=== PATIENT | female | born 1970 | race Caucasian/White ===

== ENCOUNTER 2021-05-15 08:55 | Outpatient (CLI) | payer BC, SELFPAY ==
--- NOTE | ~2021-05-15 | XR_ITS ---
EXAMINATION: XR chest 2V DATE: 05/15/2021 09:17 INDICATION: COVID 19 exposure TECHNIQUE: PA and lateral views of the chest are obtained. COMPARISON: 06/21/2013 FINDINGS: The lungs are free of acute opacities. There is no pleural effusion or pneumothorax. The ca rdiomediastinal silhouette is normal. There is mild thoracic spondylosis. IMPRESSION: 1. No acute cardiopulmonary abnormality. Reviewed, dictated and finalized at location B.
== END 2021-05-15 08:56 | disposition home or self-care (01) ==
PROVIDERS: PCP Family Medicine; Visit Provider Physician Assistant
DX: Z20.822 Contact with and (suspected) exposure to COVID-19 (principal)
CPT/HCPCS: 71046

== ENCOUNTER 2022-10-22 10:02 | Outpatient (RCR) | payer BC, SELFPAY ==
--- NOTE | 2022-10-22 10:53 | PTOPEVAL1 ---
Assessment and note entered by JT File, PT Evaluation Information Assessment Status Evaluation Diagnosis L ankle pain, ankle sprain Onset 10/13/22 Subjective Information patient reports she fell down her stairs a year ago and sprained her ankle. she reports it has gotten a bit better since the injury. however, she then missed a step on vacation and now her pain is flared back up. she reports it is swelling and very sore. she reports she has had xrays but no MRI. she reports she has had no injections. she reports she was prescribed some meds, but is no longer taking them. she reports she has not had any rehab for this injury. she reportsthe MD thinks she may have some nerve damage due to the pain presentation/symptoms. she reports she has increased pain when sleeping. she reports she also has increased pain with walking for a mile or standing for 20-30 minutes Reported Pain Level Pain Score 0: Self Report Assessment PT Clinical Summary mrs. balderas is a 52 yo woman who presents to skilled PT services for acute on chronic flare up of ankle instability and pain. she presents with signs and symptoms of an unhealed lateral L ankle sprain. she presents with deficits in rom, strength, flexibility, and stability. she would benefit from continued skilled PT to address her deficits and progress towards a return to her prior level functional activity performance/ quality of life. Plan of Care Interventions Electrical Stimulation,Gait Training,Hot Pack/Cold Pack,Intermittent Compression,Manual Therapy, Neuro Re-education,Patient/Caregiver Educati, Therapeutic Activities,Therapeutic Exercise PT Services Indicated Yes Treatment Frequency and 2x weekly for 12 visits Duration These treatments will address the objective and functional deficits as defined above. The patient will be advanced safely and appropriately in order for the patient to progress towards his/her prior level of function. Additional exercises will be introduced and as well as a comprehensive home exercise program upon discharge, if needed, ?to ensure carryover of functional gains achieved in the clinic. This treatment plan has been reviewed and agreement upon by the patient.
== END 2022-11-25 23:59 | disposition home or self-care (01) ==
LOC: CHSPT 10:02
PROVIDERS: Visit Provider Podiatrist Foot & Ankle Surgery
DX: S93.402D Sprain of unspecified ligament of left ankle, subsequent encounter (principal); M25.572 Pain in left ankle and joints of left foot
CPT/HCPCS: 97110; 97112; 97161; 97530

== ENCOUNTER 2022-10-29 09:03 | Outpatient (CLI) | payer BC, SELFPAY ==
[2022-10-29 09:51] LABS: Alanine Aminotransferase 29 U/L (14-59); Albumin Level 3.8 g/dL (3.4-5.0); Alkaline Phosphatase 57 U/L (46-116); Anion Gap 9 mmol/L (8-16); Aspartate Amino Transferase 17 U/L (15-37); Bilirubin,Total 0.6 mg/dL (0.00-1.00); Blood Urea Nitrogen 18 mg/dL (7-18); Calcium 9.4 mg/dL (8.5-10.1); Carbon Dioxide 30 mmol/L (21-32); Chloride 103 mmol/L (98-108); Cholesterol 192 mg/dL (0-200); Estimated Glomerular Filt Rate 51; Glucose 98 mg/dL (70-99); HDL Direct 58 mg/dL (40-60); LDL Cholesterol Calculated 115 mg/dL (<130); Osmolality Calculated 295 mOsm/kg (285-295); Potassium 4.1 mmol/L (3.5-5.1); Sodium 142 mmol/L (136-145); Total Protein 7.2 g/dL (6.4-8.2); Triglycerides 94 mg/dL (0-150)
== END 2022-10-29 09:04 | disposition home or self-care (01) ==
LOC: CHSLAB 09:05
PROVIDERS: PCP Family Medicine; Visit Provider Family Medicine
DX: E78.2 Mixed hyperlipidemia (principal)
CPT/HCPCS: 36415; 80053; 80061

== ENCOUNTER 2024-10-10 07:37 | Outpatient (CLI) | payer BC, SELFPAY ==
--- OUTSIDE RECORDS SUMMARY | 2024-10-10 07:44 | XMS_ITS | Clinical Summary ---
Author Organization [place] [address] [facility] Address [address] [place] [address] Care Team Providers Care Car Jockey Name Role Phone Joanne Corona MD Primary Care Provider Allergies Active Allergy Reactions Criticality Noted Date Comments Ezetimibe Nausea & Vomiting High 07/17/2022 Medications estradioL (ESTRACE) 1 mg tabletIndications:ho rmone replacement Take 1 tablet (1 mg total) by mouth every morning 02/23/20 21 Active lisinopril-hydroCHLO ROthiazide (ZESTORETIC) 10-12.5 mg per tabletIndications:hy pertension Take 1 tablet by mouth every morning Active fenofibrate nanocrystallized (TRICOR) 145 mg tabletIndications:hy perlipidemia Take 1 tablet (145 mg total) by mouth every morning 12/27/19 23 Active multivitamin tabletIndications:Vi tamin Deficiency Prevention Take 1 tablet by mouth every morning Active BLACK COHOSH ORALIndications:supp lement Take 1 tablet by mouth every morning Active HYDROcodone-acetamin ophen (NORCO) 5-325 mg per tabletIndications:Pa in Take 1 tablet by mouth every 6 (six) hours as needed for pain for up to 15 doses 15 tablet 06/27/20 24 Active acetaminophen (TYLENOL) 325 mg tablet Take 2 tablets (650 mg total) by mouth every 6 (six) hours 06/27/20 24 Active ofloxacin (FLOXIN) 0.3 % otic solution Administer 5 drops into the left ear daily 5 mL 1 06/29/20 24 Active ondansetron ODT (ZOFRAN-ODT) 4 mg disintegrating tablet Take 1 tablet (4 mg total) by mouth every 8 (eight) hours as needed for nausea or vomiting 20 tablet 06/27/20 24 Active Active Problems Problem Noted Date Diagnosed Date 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 in case of any symptoms of hyperthyroidism recur Assessment & Plan (07/17/2022 9:42 AM BRAND AMBASSADOR PROMOTIONAL MODEL): No clear s/s of hyperthyridism Will recheck TFTs Recommendations to follow. F/u in 6 months. Assessment & Plan (07/18/2021 9:14 AM BRAND AMBASSADOR PROMOTIONAL MODEL): Chronic problem, stable off medication. Will update labs today. If normal, repeat in 1 year but call sooner if any symptoms of hypo or hyperthyroidism which we reviewed. If labs only mildly abnormal, may choose to just monitor and recheck sooner in 3 months. Assessment & Plan (03/14/2021 4:46 PM CDT): I explained to the patient that the goal of hyperthyroidism is normalize TSH . At this moment her TSH is high, indicating that she needs adjustment on the Tapazole. I suspect the patient may have subclinical hyperthyroidism that does not need any specific treatment. I have requested TFTs , including TPO anti I have advised the patient on hold on the Tapazole for now Will recheck levels again in 2 months and will call with any advise. 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 [place] [address] Julius Harris MD Otosclerosis of both ears (Primary Dx) from Last 3 Months Immunizations Immunization Administration Dates Next Due Hep A, Adult 02/18/2019 Tdap 09/20/2017 Surgical History Surgery Date Site/Laterality Comments PARTIAL HYSTERECTOMY 05/13/2013 - 06/11/2013 KNEE ARTHROSCOPY Right early Medical History Medical History Date Comments Hyperthyroidism Hypertension Dxd ~2013 HL (hearing loss) 08/2005 Sleep apnea No CPAP Obesity Motion sickness +Car sickness on long drive or in back seat Family History Medical History Relation Name Comments Cancer Father Santi Hypertension Father Santi Prostate cancer Maternal Grandfather Breast cancer Maternal Grandmother Age Un known Hypertension Mother Daina Stroke Mother Daina Hypertension Sister Anesthesia problems Neg Hx Relation Name Status Comments Father Santi Maternal Grandfather Maternal Grandmother Mother Daina Sister Social History Tobacco Use Types Packs/Day Years Used Date Smoking Tobacco: Never Passive Smoke Exposure: Never Smokeless Tobacco: Never Tobacco Cessation:Counseling Given: Not Answered AUDIT-C Answer Date Recorded Q1: How often do you have a drink containing alc ohol? Monthly or less 06/27/2024 Q2: How many drinks containi ng alcohol do you have on a typical day when you are drinking? 1 or 2 06/27/2024 Q3: How often do you have si x or more drinks on one occasion? Never 06/27/2024 PHQ-2 Answer Date Recorded PHQ-2 Total Score (If total score is 3 or more points, staff should administer the PHQ-9) 0 07/17/2022 Personal Safety Answer Date Recorded Have you ever been in or are you currently in a harmful physical or emotional relationship or is someone making you feel afraid or unsafe? Denies 06/27/2024 Comments No Sex and Gender Information Value Date Recorded Sex Assigned at Not on file Legal Sex Female 8:18 AM BRAND AMBASSADOR PROMOTIONAL MODEL Gender Identity Female 11/12/2021 12:12 PM CDT Sexual Orientation Straight 03/22/2021 4: 40 PM CDT Obstetrics History Para Term AB IAB SAB Ectopic Multiple Livin g Live Births 1 1 1 Date Outcome GA Total Labor Labor/2nd/3rd Weight Sex Type Anes PTL Olga A1 A5 Name Clin Term Last Filed Vital Signs Vital Sign Reading Time Taken Comments Blood Pressure 141/79 06/27/2024 9:10 AM BRAND AMBASSADOR PROMOTIONAL MODEL Pulse 71 06/27/2024 9:10 AM BRAND AMBASSADOR PROMOTIONAL MODEL Temperature 36.4 C (97.5 F) 06/27/2024 8:35 AM BRAND AMBASSADOR PROMOTIONAL MODEL Respiratory Rate 19 06/27/2024 9:10 AM BRAND AMBASSADOR PROMOTIONAL MODEL Oxygen Saturation 96% 06/27/2024 9:10 AM BRAND AMBASSADOR PROMOTIONAL MODEL Inhaled Oxygen Concentration - - Weight 98.7 kg (217 lb 8 oz) 06/27/2024 6:00 AM BRAND AMBASSADOR PROMOTIONAL MODEL Height 170.2 cm (5' 7 ) 06/27/2024 6:00 AM BRAND AMBASSADOR PROMOTIONAL MODEL Body Mass Index 34.07 06/27/2024 6:00 AM BRAND AMBASSADOR PROMOTIONAL MODEL Plan of Treatment Health Maintenance Due Date Last Done Comments Colon Cancer Screening-Colonoscopy 1972 Hepatitis C Screening 1972 Hepatitis B Screening 01/06/1990 Regular Well Visit/Exam 18-64 01/06/1990 Zoster Vaccine (1 of 2) 01/06/2022 Depression Screening 07/17/2023 07/17/2022 Covid-19 Vaccine ( season) 2024 11/06/2020, 10/15/2020 Influenza Vaccine (#1) 2024 05/08/2020 Breast Cancer Screening-Mammogram 06/23/2025 06/23/2024, 06/01/2023, 06/13/2022, Additional history exists DTaP/Tdap/Td Vaccine (2 - Td or Tdap) 09/21/2027 09/20/2017 Pneumococcal vaccine <65 Aged Out No longer eligible based on patient's age to complete this topic Medical Devices Implanted Type Area Marketing Operations Analyst Device Identifier Shelf Expiration Date Model / Serial / Lot Antonia Rita Leroy Otology 5mm .5mm Eclipse 360d Incus Wide Flat Ribbon [id number] - [id number] Implanted:Qty: 1 on 06/27/2024 by Julius Harris MD at [facility] Left: Ear Antonia Salinas 01/11/2028 [id number] / / [id number] Procedures Procedure Name Priority Date/Time Associated Diagnosis Comments SCREENING MAMMOGRAM BILATERAL W SADIQ Schedule Routine, Read Routine (OP Routine) 06/23/2024 11:18 AM BRAND AMBASSADOR PROMOTIONAL MODEL Screening mammogram, encounter for from Last 3 Months or Most Recently Relevant to Health Maintenance Results * Screening Mammogram Bilateral W Sadiq (06/23/2024 11:18 AM BRAND AMBASSADOR PROMOTIONAL MODEL) Anatomical Region Laterality Modality Breast Bilateral Mammography 06/23/2024 12:2 9 PM BRAND AMBASSADOR PROMOTIONAL MODEL Impressions 06/23/2024 12:29 PM BRAND AMBASSADOR PROMOTIONAL MODEL No evidence of malignancy in either breast. FINAL ASSESSMENT: BI-RADS Category 2: Benign. RECOMMENDATION: Recommend return for annual screening mammogram in 12 months. Electronically signed by: BIENVENIDO HOFFMAN MD Narrative 06/23/2024 12:29 PM BRAND AMBASSADOR PROMOTIONAL MODEL EXAMINATION: BILATERAL SCREENING MAMMOGRAM COMPARISON: All prior mammograms dating back to 2019. TECHNIQUE: Full-field 2D and digital breast tomosynthesis (DBT) images were obtained. CAD was utilized. BREAST PARENCHYMAL COMPOSITION: There are scattered areas of fibroglandular density. FINDINGS: There is no suspicious mass, calcification, or distortion in either breast. Stable bilateral benign masses are again noted. us Self Screening Mammogram IMG MAMMO PROCEDURES Fi nal Result from Last 3 Months or Most Recently Relevant to Health Maintenance Insurance [employer] OOS BLUE ACC CHOICE OOS BLUE ACC CHOICE OOS Care Teams Car Jockey Relationship Specialty Start Date End Date Joanne Corona MD [address] [place] [address] PCP - General Family Medicine 03/14/21
--- OUTSIDE RECORDS SUMMARY | 2024-10-10 07:44 | XMS_ITS | Referral Summary ---
Author Organization [place] [address] [facility] Address [address] [place] [address] Care Team Providers Care Broke Worker Name Role Phone Joanne Corona MD Primary Care Provider Encounters Date Type Department Care Team Description 08/09/2024 8:00 AM HOME TEACHING GRADES 9 THRU 12 TEACHER Office Visit [facility] Otolaryngology [address] [place] [address], [address] [place] [address] Julius Harris MD Otosclerosis of both ears (Primary Dx) from Last 3 Months Allergies Active Allergy Reactions Criticality Noted Date [...] recur Assessment & Plan (07/17/2022 9:42 AM HOME TEACHING GRADES 9 THRU 12 TEACHER): No clear s/s of hyperthyridism Will recheck TFTs Recommendations to follow. F/u in 6 months. Assessment & Plan (07/18/2021 9:14 AM HOME TEACHING GRADES 9 THRU 12 TEACHER): Chronic problem, stable off medication. Will update [...] Hearing loss 12/27/2013 Mass of breast 03/04/2013 Immunizations Immunization Administration Dates Next Due Hep A, Adult 02/18/2019 Tdap 09/20/2017 Social History Tobacco Use Types Packs/Day Years [...] on file Legal Sex Female 8:18 AM HOME TEACHING GRADES 9 THRU 12 TEACHER Gender Identity Female 11/12/2021 12:12 PM CDT Sexual Orientation Straight 03/22/2021 4: 40 PM CDT Last Filed Vital Signs Vital Sign Reading Time Taken Comments Blood Pressure 141/79 06/27/2024 9:10 AM HOME TEACHING GRADES 9 THRU 12 TEACHER Pulse 71 06/27/2024 9:10 AM HOME TEACHING GRADES 9 THRU 12 TEACHER Temperature 36.4 C (97.5 F) 06/27/2024 8:35 AM HOME TEACHING GRADES 9 THRU 12 TEACHER Respiratory Rate 19 06/27/2024 9:10 AM HOME TEACHING GRADES 9 THRU 12 TEACHER Oxygen Saturation 96% 06/27/2024 9:10 AM HOME TEACHING GRADES 9 THRU 12 TEACHER Inhaled Oxygen Concentration - - Weight 98.7 kg (217 lb 8 oz) 06/27/2024 6:00 AM HOME TEACHING GRADES 9 THRU 12 TEACHER Height 170.2 cm (5' 7 ) 06/27/2024 6:00 AM HOME TEACHING GRADES 9 THRU 12 TEACHER Body Mass Index 34.07 06/27/2024 6:00 AM HOME TEACHING GRADES 9 THRU 12 TEACHER Plan of Treatment Not on file Medical Devices Implanted Type Area Tube Tester Device Identifier Shelf Expiration Date Model / Serial / Lot Antonia [employer] Piston Otology 5mm .5mm Eclipse 360d Incus Wide Flat Ribbon [id number] - [id number] Implanted:Qty: 1 on 06/27/2024 by Julius Harris MD at [facility] Left: Elizabeth Salinas 01/[birth year]/2028 [id number] / / [id number] Procedures Procedure Name Priority Date/Time Associated Diagnosis Comments SCREENING MAMMOGRAM BILATERAL W SADIQ Schedule Routine, Read Routine (OP Routine) 06/23/2024 11:18 AM HOME TEACHING GRADES 9 THRU 12 TEACHER Screening mammogram, encounter for from Last 3 Months or Most Recently Relevant to Health Maintenance Results * Screening Mammogram Bilateral W Sadiq (06/23/2024 11:18 AM HOME TEACHING GRADES 9 THRU 12 TEACHER) Anatomical Region Laterality Modality Breast Bilateral Mammography 06/23/2024 12:2 9 PM HOME TEACHING GRADES 9 THRU 12 TEACHER Impressions 06/23/2024 12:29 PM HOME TEACHING GRADES 9 THRU 12 TEACHER No evidence of malignancy in either breast. FINAL ASSESSMENT: BI-RADS Category 2: Benign. RECOMMENDATION: Recommend return for annual screening mammogram in 12 months. Electronically signed by: BIENVENIDO HOFFMAN MD Narrative 06/23/2024 12:29 PM HOME TEACHING GRADES 9 THRU 12 TEACHER EXAMINATION: BILATERAL SCREENING MAMMOGRAM COMPARISON: All prior [...] Most Recently Relevant to Health Maintenance Insurance [facility] CHOICE OOS BLUE ACC CHOICE OOS [employer] CHOICE OOS Care Teams Broke Worker Relationship Specialty Start Date End Date Joanne Corona MD [address] [facility] [address] [place] [id number] PCP - General Family Medicine 03/14/21
[2024-10-10 07:48] LABS: Basophils Absolute Auto 0.07 K/mm3 (0.00-0.10); Basophils Percent Auto 1.6 % (0.0-1.0); Eosinophils Absolute Auto 0.14 K/mm3 (0.02-0.50); Eosinophils Percent Auto 3.2 % (1.0-6.0); Hematocrit 40.4 % (35.0-49.0); Hemoglobin 12.7 g/dL (12.0-15.0); Immature Granulocyte Absolute 0.02 K/mm3 (0.00-0.00); Immature Granulocyte Percent A 0.5 % (0.0-0.0); Lymphocytes Absolute Auto 2.05 K/mm3 (1.10-4.50); Lymphocytes Percent Auto 46.5 % (18.0-42.0); Mean Corpuscular HGB Conc 31.4 g/dL (32-36); Mean Corpuscular Hemoglobin 25.2 pg (27.0-31.0); Mean Corpuscular Volume 80.3 fL (78.0-102.0); Mean Platelet Volume 9.9 fl (9.2-11.8); Monocytes Absolute Auto 0.45 K/mm3 (0.10-0.90); Monocytes Percent Auto 10.2 % (2.0-11.0); Neutrophils Absolute Auto 1.68 K/mm3 (1.70-7.20); Platelet Count Result 235 K/mm3 (150-420); Red Blood Count 5.03 M/mm3 (4.20-5.40); Red Cell Distribution Width 13.6 % (11.6-14.4); White Blood Count 4.4 K/mm3 (4.8-10.8)
[2024-10-10 08:55] LABS: Alanine Aminotransferase 33 U/L (14-59); Albumin Level 3.7 g/dL (3.4-5.0); Alkaline Phosphatase 66 U/L (46-116); Anion Gap 6 mmol/L (4-12); Aspartate Amino Transferase 17 U/L (15-37); Bilirubin,Total 0.6 mg/dL (0.00-1.00); Blood Urea Nitrogen 19 mg/dL (7-18); Calcium 9.6 mg/dL (8.5-10.1); Carbon Dioxide 31 mmol/L (21-32); Chloride 105 mmol/L (98-108); Cholesterol 187 mg/dL (0-200); Estimated Glomerular Filt Rate 54; Glucose 103 mg/dL (70-99); HDL Direct 59 mg/dL (40-60); LDL Cholesterol Calculated 113 mg/dL (<130); Osmolality Calculated 296 mOsm/kg (285-295); Potassium 4.2 mmol/L (3.5-5.1); Sodium 142 mmol/L (136-145); Total Protein 6.9 g/dL (6.4-8.2); Triglycerides 76 mg/dL (0-150)
[2024-10-10 09:26] LABS: Thyroid Stimulating Hormone 0.38 uIU/mL (0.36-3.74)
== END 2024-10-10 07:38 | disposition home or self-care (01) ==
LOC: CHSLAB 07:40
PROVIDERS: Student in an Organized Health Care Education/Training Program; PCP Family Medicine; Visit Provider Physician Assistant
DX: I10 Essential (primary) hypertension (principal); E78.2 Mixed hyperlipidemia; Z13.29 Encounter for screening for other suspected endocrine disorder
CPT/HCPCS: 36415; 80053; 80061; 84443; 85025

== ENCOUNTER 2024-11-30 13:54 | Outpatient (CLI) | payer BC, SELFPAY ==
--- NOTE | ~2024-11-30 | XR_ITS ---
Lumbosacral Spine: AP and lateral views Clinical History: Pain Findings: The normal lordotic curve is maintained. No fracture seen. There is 3 mm anterolisthesis of L4 over L5. There is moderate facet arthropathy, especially from L4 through S1. The sacroiliac joint s are normally outlined. Impression: Degenerative change, as above, mild to moderate degree. 3 mm anterolisthesis of L4 over L5. Reviewed, dictated and finalized at location M. Impression: Degenerative change, as above, mild to moderate degree. 3 mm anterolisthesis of L4 over L5.
--- OUTSIDE RECORDS SUMMARY | 2024-11-30 14:07 | XMS_ITS | Data Portability ---
Author Organization [place] [facility] [employer], Main Office Address [address] [place] [address] Care Team Providers Care Medical Legal Investigator Name Role Phone CECYMARION BATEMAN Primary Care Provider ERNESTINETRAJimMARION Referring Provider [phone] Assessment Encounter Date Assessment Date Assessment LastModified by Organization Details LastModified Time 10/13/2022 10/13/2022 This note is dictated and transcribed by [employer]. Sweet Pickle Maker variances may occur. Despite proofreading, typographical errors may occur. Not available 10/13/2022 11:02:12 10/31/2024 10/31/2024 This note is dictated and transcribed by [employer]. [employer] variances may occur. Despite proofreading, typographical errors may occur. Occasional wrong-word or '[id number]-[id number]' substitutions may have occurred due to the inherent limitations of voice recording. Read the chart carefully and recognize, using context, where substitutions have occurred. Not available 10/31/2024 12:42:30 Plan of Treatment Reminders Order Date Submit Date Provider Last Modified By Organization Details Last Modified Time Details Appointments Establish ed Patient 15 2024 10:00A Natividad Escalante DPM Not available Not available Not available Lab None recorded. Referral None recorded. Procedures None recorded. Surgeries None recorded. Imaging XR, lumbar spine - r/o referred pain left leg 2024 025 [email or web address] Not available 11/28/2024 08:44:57 electromy ogram + nerve conductio n study - PLEASE CALL PT TO SCHEDULE AN APPT..... THANK YOU! 2024 025 [email or web address] [facility] (Cardiology & Emg), [address], [place], [address], 11/28/2024 08:44:57 Medication Orders diclofena c sodium 75 mg tablet,de layed release 2024 025 [email or web address] [facility] [address] [place], [address], 10/31/2024 13:37:29 diclofena c sodium 75 mg tablet,de layed release 2022 023 [email or web address] [facility] [address] [place], [address], 09/22/2022 14:50:57 Patient TargetsNo targets recorded. Patient Instructions Encounter Date Encounter Id Patient Instructions Last Modified By Organization Details Last Modified Time 09/22/2022 [id number] posterior tibial tendinitis: exercises [email or web address] Not available 09/22/2022 09:45:33 plantar fasciitis: exercises [email or web address] Not available 09/22/2022 09:45:33 plantar fasciiti s education [email or web address] Not available 09/22/2022 09:45:33 x-rays left foot AP, [place], Lat-weightbearing impression- pes planus no fractures, no lytic lesion, no periosteal reaction, normal bone density, joint spacing normal, no dislocation, no foreign body, spurring of the plantar heel, mild bunion, pes planus x-rays left ankle mortise, AP, Lat -weightbearing impression- normal findings no fractures, ankle mortise intact, normal bone density, and periosteal reactions, no lytic lesion, no foreign body, joint space within normal limits, no dislocations [email or web address] Not available 09/22/2022 14:57:42 10/31/2024 [id number] learning about rice (rest, ice, compression, and elevation) [email or web address] Not available 10/31/2024 13:37:29 Reason for Referral None Reported. Problems Name Problem SNOMED Code Status Onset Date Resolution Date Notes Provider Name and Address Organization Details Recorded Time Sprain of lateral ligament of ankle joint 923533002 Active 2021 Not Available [facility] 16:57:02 Current tear of medial cartilage AND/OR meniscus of knee Active Not Available [facility] 3 16:57:02 Knee pain Active Not Available [facility] 3 16:57:03 Chondromal acia of patella 21441030 Active Not Available [facility] 3 16:57:03 Derangemen t of knee 57290937 Active Not Available [facility] 3 16:57:03 Pain of left ankle joint 8409840646314 9103 Active 2022 Johnna Sullivan MA null, [employer] [facility] 3 09:01:22 Pain in left foot 8658122248487 07 Active 2022 Johnna Sullivan MA null, [employer] [facility] 3 09:03:17 Tendonitis of left ankle 9559689407861 9106 Active 2022 Brad Escalante DPM [address], [address], [place], [address] , [facility] [employer] [facility] 3 09:44:39 Plantar fasciitis of left foot 8778496465184 9101 Active 2022 Brad Escalante DPM [address], [address], [place], [address] , [employer] [facility] [employer] [facility] 3 09:45:08 Congenital pes planus 14820803 Active 2022 Brad Escalante DPM [address], [address], [place], [address] , [facility] [employer] [facility] 3 09:46:24 Pain in left lower limb 615835434 Active 2024 Brad Escalante DPM [address], [address], [place], [address] , [facility] [employer] [facility] 5 12:42:17 Paresthesi a of lower extremity 952554230 Active 2024 Brad Escalante DPM [address], [address], [place], [address] , [facility] [employer] [facility] 5 12:42:23 Lumbar radiculopa thy 910991509 Active 2024 Brad Escalante, DPNatividad [address], [place], [address] , [facility] 5 12:43:17 Problem Notes None recorded. Medical Equipment None Reported. Allergies No known drug allergies Medications Name Sig Start Date Stop Date Status Note LastModified by Organization Details LastModified Time amoxicillin 500 mg capsule TAKE 1 CAPSULE BY MOUTH THREE TIMES DAILY FOR 10 DAYS active Not Available Not Available No t Available prednisone 10 mg tablet 07/12 completed Not Available Not Available Not Available benzonatate 200 mg capsule 07/12 completed Not Available Not Available Not Available hydrocodone 5 mg-acetamin ophen 325 mg tablet TAKE 1 TABLET BY MOUTH EVERY 6 HOURS NEEDED FOR PAIN FOR UP TO 15 DOSES active Not Available Not Available No t Available triamcinolo ne acetonide 0.1 % topical cream active Not Available Not Available Not Available ofloxacin 0.3 % ear drops INSTILL 5 DROPS INTO LEFT EAR ONCE DAILY active Not Available Not Available No t Available amoxicillin 875 mg tablet 07/12 completed Not Available Not Available Not Available estradiol 1 mg tablet active Not Available Not Available No t Available benzonatate 100 mg capsule TAKE 2 CAPSULES BY MOUTH THREE TIMES DAILY NEEDED FOR COUGH active Not Available Not Available No t Available cephalexin 500 mg capsule 07/12 completed Not Available Not Available Not Available clotrimazol e-betametha sone 1 %-0.05 % topical cream APPLY CREAM TO AFFECTED AREAS 1-2 TIMES DAILY UNTIL CLEAR. USE 2 WEEKS AT A TIME. TAKE A WEEK BREAK BEFORE RESUMING FOR FLARES. active Not Available Not Available No t Available diclofenac sodium 75 mg tablet,kristina yed release TAKE 1 TABLET BY MOUTH TWICE DAILY DIRECTED active Not Available Not Available No t Available codeine 10 mg-guaifene sin 100 mg/5 mL oral liquid 09/22 completed Not Available Not Available Not Available azelastine 137 mcg (0.1 %) nasal spray INSTILL ONE SPRAY INTO EACH NOSTRIL EVERY 12 HOURS active Not Available Not Available No t Available lisinopril 10 mg-hydrochl orothiazide 12.5 mg tablet active Not Available Not Available Not Available ibuprofen 600 mg tablet TAKE 1 TABLET BY MOUTH EVERY 6 HOURS active Not Available Not Available No t Available methylpredn isolone 4 mg tablets in a dose pack 07/12 completed Not Available Not Available Not Available losartan 50 mg-hydrochl orothiazide 12.5 mg tablet 07/12 completed Not Available Not Available Not Available ondansetron 4 mg disintegrat ing tablet DISSOLVE 1 TABLET IN MOUTH EVERY 8 HOURS NEEDED FOR NAUSEA FOR VOMITING active Not Available Not Available No t Available amoxicillin 875 mg-potassiu m clavulanate 125 mg tablet 07/12 completed Not Available Not Available Not Available neomycin-po lymyxin-hyd rocort 3.5 mg-10,000 unit/mL-1 % ear drops,susp 07/12 completed Not Available Not Available Not Available ezetimibe 10 mg tablet active Not Available Not Available Not Available rosuvastati n 5 mg tablet active Not Available Not Available Not Available Boostrix Tdap 2.5 Lf unit-8 mcg-5 Lf/0.5 mL intramuscul ar syringe ADM 0.5ML IM UTD 07/12 completed Not Available Not Available Not Available Euflexxa 10 mg/mL (mw 2.4-3.6 million) intra-artic ular syringe active Not Available Not Available Not Available fenofibrate nanocrystal lized 145 mg tablet active Not Available Not Available No t Available Paxlovid 300 mg (150 mg x 2)-100 mg tablets in a dose pack TAKE 3 TABLETS TOGETHER (TWO 150 MG NIRMATREL VIR TABLETS AND ONE 100 MG RITONAVIR TABLET) BY MOUTH TWICE DAILY FOR 5 DAYS. active Not Available Not Available No t Available Vitals Date Recorded Body mass index (BMI) Body height Body weight Provider Name and Address Organization Details Last Updated DateTime 10/03/2021 33.9 kg/m2 167.64 cm 20035.4 g Not Available [employer] 09/10/2022 16:56:10 Date Recorded Body height Heart rate Systolic blood pressure Diastolic blood pressure Provider Name and Address Organization Details Last Updated DateTime 09/22/2022 167.64 cm 93 /min 195 mm[Hg] 116 mm[Hg] Kortney Sullivan MA [place] [facility] [employer] 09/22/2022 09:00:23 Date Recorded Body height Heart rate Respiratory rate Oxygen saturation Oxygen saturation in Arterial blood by Pulse oximetry Systolic blood pressure Diastolic blood pressure Provider Name and Address Organization Details Last Updated DateTime 3 167.64 cm 78 /min 14 /min 99 % 99 % 136 mm[Hg] 74 mm[Hg] Ghada Hughes [employer] [facility] 3 10:31:57 Date Recorded Body height Heart rate Respiratory rate Oxygen saturation Oxygen saturation in Arterial blood by Pulse oximetry Systolic blood pressure Diastolic blood pressure Provider Name and Address Organization Details Last Updated DateTime 5 167.64 cm 78 /min 14 /min 98 % 98 % 140 mm[Hg] 83 mm[Hg] Ghada Hughes [facility] [employer] [facility] 5 12:30:53 Social History None recorded. Functional Status None recorded. Mental Status None recorded. Family History Nothing Reported. Medical History No medical history recorded. Gynecological HistoryNo gynecological history recorded. Obstetrics History GPAL:G 0 P 0 0 0 0 Past Encounters Encounter ID Performer Location Encounter Start Date Encounter Closed Date Diagnosis/Indication Diagnosis SNOMED-CT Code Diagnosis ICD10 Code Diagnosis Note [id number] [facility] [place] [address] [place] [address] 09/05/2021 00:00:00 09/06/2021 17:20:41 [id number] [facility] [place] [address] [place] [address] 10/03/2021 00:00:00 10/03/2021 14:01:16 [id number] Brad Escalante DPM [facility] [place] [address] [place] [address] 09/22/2022 08:52:59 09/22/2022 16:18:21 Pain of left ankle joint 7690781107 2492339 M25.572 xrays of foot and ankle- neg , flat foot Tendonitis of left ankle 6230320928 2155757 M67.874 stretching and icing instructio ns reviewedFo llow-up in 3 weeks possible physical therapy and ultrasound at that time Plantar fa sciitis of left foot 2126615359 9009363 M72.2 stretching and icing instructio ns reviewedre commend supportive shoe gearFollow -up in 3 weeks possible physical therapy at that time Congenital pes planus 23 544337 Q66.52 ankle and foot x-rays reviewed with the patientcon tinue [facility] orthoticsR ecommend also stepping up to [facility] [id number] Brad Escalante DPM [facility] [place] [address] [place] [address] 10/13/2022 10:23:20 10/14/2022 13:12:32 Pain of left ankle joint 9624290389 4353908 M25.572 xrays of foot and ankle- neg , flat footRx physical therapy Tendonitis of left ankle 0790472479 8693400 M67.874 Resolved Plantar fa sciitis of left foot 1458951993 3571625 M72.2 resolvedco ntinue stretching and icinngcont inue orthoticsC ontinue supportive shoe gear [id number] Brad Escalante DPM [facility] [place] [address] [place] [address] 10/31/2024 12:22:58 11/02/2024 08:33:21 Pain in left lower limb 057060452 M79.605 Paresthesi a of lower extremity 168970438 R20.2 nerve testing ordered Lumbar radiculopathy 128 143173 M54.16 obtain xrays r/o arthritis Health Concerns Section Related Observation LastModified by Organization Detai ls LastModified Time None Recorded Concern Status LastModified by Organization Details LastModified Time None Recorded Advance Directives Directive None Recorded Payers Encounter Date Sequence Insurance Name Policy Number Policy Floyd Covered Member ID Floyd Member ID Guarantor Name 09/22/2022 1 [place] [id number] Armando Hammer [id number] Bhakti Hammer 10/13/2022 1 [place] [id number] Armando Hammer [id number] Bhakti Hammer 10/31/2024 1 [place] [id number] Armando Hammer [id number] Bhakti Hammer Notes Date Note Type Note Provider Name and Address Organization Details Recorded Time 09/22/2022 text/html . Patient is a 52-year-old female who presents the office with complaints of injury to her left ankle. Patient states that she also has heel pain of the left foot as well. Patient states that she has a history of injury to her left ankle last year. Patient states that recently approximately 3 weeks ago she was walking down some stairs and missed the last stair causing her to fall and sprain her ankle. Patient states that she had some pmnl-jq-ccqijbrh swelling without bruising of the ankle and she has been having pain that has improved but not resolved over the last couple weeks. Patient describes her pain at the level of the ankle coursing along her posterior tibial tendon. Patient states that she also has pain on the plantar medial aspect and central heel. Patient states that when she is standing or walking she has more pain at these areas. Patient denies any redness or open wounds. Patient states when she is at rest it does feel better. Patient denies any other pedal complaints. Brad Escalante DPM [address], [address], [place], [address], [employer] 09/22/2022 16:10:57 10/13/2022 text/html . Patient is a 52-year-old female who returns the office for follow-up on tendinitis the left ankle, plantar fasciitis, ankle pain. Patient states that all of her pain has resolved with the exception of pain in her lateral ankle. Patient denies any further injury of the ankle. Patient states the tenderness is over the anterior talofibular ligament. Patient has no bruising or swelling to the area. Patient states when she is walking it feels sore. Patient denies any other pedal complaints. Brad Escalante DPM [address], [place], [address], [employer] 10/13/2022 11:03:11 10/31/2024 text/html . Patient is a 54-year-old female she returns with complaints of pain to her left lower leg. Patient states that she has a tingling sensation to her anterior lateral ankle. Patient states this is all the time. Patient states it does change in terms of pain when she is walking she starts to get a dull ache to the area. Patient denies any injury, open wounds, rashes to the area. Patient states that she does have lower back pain which I did explain this could be possibly referred pain from her lower back we will follow up with this as she states she has not seen anyone for this condition. Brad Escalante DPM [address], [place], [address], [place] [facility] [employer] [facility] 10/31/2024 13:44:51 OBGyn Episode No OBEpisode recorded.
--- OUTSIDE RECORDS SUMMARY | 2024-11-30 14:07 | XMS_ITS | Clinical Summary ---
Author Organization [place] [id number] Address [address] [place] [address] Care Team Providers Care Solid Waste Facility Operator Name Role Phone Tarik Paredes MD Primary Care Provider Allergies Active Allergy Reactions Criticality Noted Date Comments Ezetimibe Nausea & Vomiting High 07/17/2022 Medications estradioL (ESTRACE) 1 mg tabletIndications:ho rmone replacement Take 1 tablet (1 mg total) by mouth every morning 1 Active lisinopril-hydroCHLO ROthiazide (ZESTORETIC) 10-12.5 mg per tabletIndications:hy pertension Take 1 tablet by mouth every morning Active fenofibrate nanocrystallized (TRICOR) 145 mg tabletIndications:hy perlipidemia Take 1 tablet (145 mg total) by mouth every morning 3 Active multivitamin tabletIndications:Vi tamin Deficiency Prevention Take 1 tablet by mouth every morning Active BLACK COHOSH ORALIndications:supp lement Take 1 tablet by mouth every morning Active Active Problems Problem Noted Date Diagnosed Date 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 in case of any symptoms of hyperthyroidism recur Assessment & Plan (07/17/2022 9:42 AM RN INTEGRITY): No clear s/s of hyperthyridism Will recheck TFTs Recommendations to follow. F/u in 6 months. Assessment & Plan (07/18/2021 9:14 AM RN INTEGRITY): Chronic problem, stable off medication. Will update [...] Encounters Date Type Department Care Team Description 10/18/2024 9:40 AM CDT Office Visit [facility] Otolaryngology [address] [place] [address] Julius Harris MD Otosclerosis of both ears (Primary Dx); Mixed hearing loss, bilateral 10/18/2024 9:20 AM CDT Procedure visit [facility] Otolaryngology [address] [place] [address] Mixed conductive and sensorineural hearing loss of right ear with restricted hearing of left ear (Primary Dx); Sensorineural hearing loss (SNHL) of left ear with restricted hearing of right ear from Last 3 Months Immunizations Immunization Administration [...] on file Legal Sex Female 8:18 AM RN INTEGRITY Gender Identity Female 11/12/2021 12:12 PM CDT [...] Comments Blood Pressure 141/79 06/27/2024 9:10 AM RN INTEGRITY Pulse 71 06/27/2024 9:10 AM RN INTEGRITY Temperature 36.4 C (97.5 F) 06/27/2024 8:35 AM RN INTEGRITY Respiratory Rate 19 06/27/2024 9:10 AM RN INTEGRITY Oxygen Saturation 96% 06/27/2024 9:10 AM RN INTEGRITY Inhaled Oxygen Concentration - - Weight 98.7 kg (217 lb 8 oz) 06/27/2024 6:00 AM RN INTEGRITY Height 170.2 cm (5' 7 ) 06/27/2024 6:00 AM RN INTEGRITY Body Mass Index 34.07 06/27/2024 6:00 AM RN INTEGRITY Plan of Treatment Health Maintenance Due Date Last Done Comments Colon Cancer Screening-Colonoscopy 1972 Hepatitis C Screening 1972 Hepatitis B Screening 01/06/1990 Regular Well Visit/Exam 18-64 01/06/1990 Zoster Vaccine (1 of 2) 01/06/2022 Depression Screening 07/17/2023 07/17/2022 Covid-19 Vaccine ( - season) 2024 11/06/2020, 10/15/2020 Influenza Vaccine (Season Ended) 2025 05/08/2020 Breast Cancer Screening-Mammogram 06/23/2025 06/23/2024, 06/01/2023, 06/13/2022, Additional history exists DTaP/Tdap/Td Vaccine (2 - Td or Tdap) 09/21/2027 09/20/2017 Pneumococcal vaccine <65 Aged Out No longer eligible based on patient's age to complete this topic Medical Devices Implanted Type Area Mowing Machine Operator Device Identifier Shelf Expiration Date Model / Serial / Lot [employer] 5mm .5mm Eclipse 360d [employer] Wide Flat Ribbon [id number] - [id number] Implanted:Qty: 1 on 06/27/2024 by Julius Harris MD at [facility] Left: Ear [employer] 01/11/2028 [id number] / / [id number] Procedures Procedure Name Priority Date/Time Associated Diagnosis Comments AUDBASE RESULTS 10/18/2024 9:05 AM CDT SCREENING MAMMOGRAM BILATERAL W SADIQ Schedule Routine, Read Routine (OP Routine) 06/23/2024 11:18 AM RN INTEGRITY Screening mammogram, encounter for from Last 3 Months or Most Recently Relevant to Health Maintenance Results * AudBase Results (10/18/2024 9:05 AM CDT) Provider Scanning AUDIOLOGY SERVICES ORDERABLES Final Result * Screening Mammogram Bilateral W Sadiq (06/23/2024 11:18 AM RN INTEGRITY) Anatomical Region Laterality Modality Breast Bilateral Mammography 06/23/2024 12:2 9 PM RN INTEGRITY Impressions 06/23/2024 12:29 PM RN INTEGRITY No evidence of malignancy in either breast. FINAL ASSESSMENT: BI-RADS Category 2: Benign. RECOMMENDATION: Recommend return for annual screening mammogram in 12 months. Electronically signed by: BIENVENIDO HOFFMAN MD Narrative 06/23/2024 12:29 PM RN INTEGRITY EXAMINATION: BILATERAL SCREENING MAMMOGRAM COMPARISON: All prior [...] Most Recently Relevant to Health Maintenance Insurance [facility] CHOICE OOS BLUE ACC CHOICE OOS BLUE ACC CHOICE OOS Care Teams Solid Waste Facility Operator Relationship Specialty Start Date End Date Tarik Paredes MD [address] [place] [address] PCP - General Family Medicine 10/18/24
--- OUTSIDE RECORDS SUMMARY | 2024-11-30 14:07 | XMS_ITS | Referral Summary ---
Author Organization [place] [id number] [facility] Address [address] [place] [address] Care Team Providers Care Social Work Associate Name Role Phone Tarik Paredes MD Primary Care Provider Encounters Date Type Department Care Team Description 10/18/2024 9:20 AM CDT Procedure visit [facility] Otolaryngology [address] [place] [phone] Mixed conductive and sensorineural hearing loss of right ear with restricted hearing of left ear (Primary Dx); Sensorineural hearing loss (SNHL) of left ear with restricted hearing of right ear 10/18/2024 9:40 AM CDT Office Visit [facility] Otolaryngology [address] [place] [phone] Julius Harris MD Otosclerosis of both ears (Primary Dx); Mixed hearing loss, bilateral from Last 3 Months Allergies Active Allergy [...] recur Assessment & Plan (07/17/2022 9:42 AM NEWSPAPER PHOTOJOURNALIST): No clear s/s of hyperthyridism Will recheck TFTs Recommendations to follow. F/u in 6 months. Assessment & Plan (07/18/2021 9:14 AM NEWSPAPER PHOTOJOURNALIST): Chronic problem, stable off medication. Will update [...] on file Legal Sex Female 8:18 AM NEWSPAPER PHOTOJOURNALIST Gender Identity Female 11/12/2021 12:12 PM CDT Sexual Orientation Straight 03/22/2021 4: 40 PM CDT Last Filed Vital Signs Vital Sign Reading Time Taken Comments Blood Pressure 141/79 06/27/2024 9:10 AM NEWSPAPER PHOTOJOURNALIST Pulse 71 06/27/2024 9:10 AM NEWSPAPER PHOTOJOURNALIST Temperature 36.4 C (97.5 F) 06/27/2024 8:35 AM NEWSPAPER PHOTOJOURNALIST Respiratory Rate 19 06/27/2024 9:10 AM NEWSPAPER PHOTOJOURNALIST Oxygen Saturation 96% 06/27/2024 9:10 AM NEWSPAPER PHOTOJOURNALIST Inhaled Oxygen Concentration - - Weight 98.7 kg (217 lb 8 oz) 06/27/2024 6:00 AM NEWSPAPER PHOTOJOURNALIST Height 170.2 cm (5' 7 ) 06/27/2024 6:00 AM NEWSPAPER PHOTOJOURNALIST Body Mass Index 34.07 06/27/2024 6:00 AM NEWSPAPER PHOTOJOURNALIST Plan of Treatment Not on file Medical Devices Implanted Type Area Assistant Director Of Security Device Identifier Shelf Expiration Date Model / Serial / Lot Antonia Harper Otology 5mm .5mm Eclipse 360d Incus Wide Flat Ribbon [id number] - [id number] Implanted:Qty: 1 on 06/27/2024 by Julius Harris MD at [facility] Left: Ear [employer] 01/11/2028 [id number] / / [id number] Procedures Procedure Name Priority Date/Time Associated Diagnosis Comments AUDBASE RESULTS 10/18/2024 9:05 AM CDT SCREENING MAMMOGRAM BILATERAL W SADIQ Schedule Routine, Read Routine (OP Routine) 06/23/2024 11:18 AM NEWSPAPER PHOTOJOURNALIST Screening mammogram, encounter for from Last 3 Months or Most Recently Relevant to Health Maintenance Results * AudBase Results (10/18/2024 9:05 AM CDT) Provider Scanning AUDIOLOGY SERVICES ORDERABLES Final Result * Screening Mammogram Bilateral W Sadiq (06/23/2024 11:18 AM NEWSPAPER PHOTOJOURNALIST) Anatomical Region Laterality Modality Breast Bilateral Mammography 06/23/2024 12:2 9 PM NEWSPAPER PHOTOJOURNALIST Impressions 06/23/2024 12:29 PM NEWSPAPER PHOTOJOURNALIST No evidence of malignancy in either breast. FINAL ASSESSMENT: BI-RADS Category 2: Benign. RECOMMENDATION: Recommend return for annual screening mammogram in 12 months. Electronically signed by: BIENVENIDO HOFFMAN MD Narrative 06/23/2024 12:29 PM NEWSPAPER PHOTOJOURNALIST EXAMINATION: BILATERAL SCREENING MAMMOGRAM COMPARISON: All prior [...] Recently Relevant to Health Maintenance Insurance [facility] CHOICE OOS BLUE ACC CHOICE OOS Member Subscriber Plan / Payer (Ef fective 2022-Present) Name:Bhakti Bullock Relation to Subscriber:Spouse Name:ALVINA BULLOCK Date of :1899 (Home) Address: [address] [place] [address] Payer ID:[id number] (NAIC) Type:[employer] Address: [address] [place] [address] BLUE ACC CHOICE OOS Member Subscriber Plan / Payer (Ef fective 2022-Present) Name:Bhakti Bullock Relation to Subscriber:Spouse Name:ALVINA BULLOCK Date of :1899 (Home) Address: [address] [place] [address] Payer ID:[id number] (NAIC) Type:[employer] Address: [address] [place] [address] Care Teams Social Work Associate Relationship Specialty Start Date End Date Tarik Paredes MD [address] [facility] [address] [place] [address] PCP - General Family Medicine 10/18/24
== END 2024-11-30 13:55 | disposition home or self-care (01) ==
PROVIDERS: PCP Family Medicine; Visit Provider Podiatrist Foot & Ankle Surgery
DX: M54.16 Radiculopathy, lumbar region (principal); M43.16 Spondylolisthesis, lumbar region
CPT/HCPCS: 72100

== ENCOUNTER 2025-01-09 08:37 | Outpatient (CLI) | payer BC, SELFPAY ==
--- NOTE | 2025-01-09 11:00 | NEURO_ITS ---
Impression: # Nondiabetic complains of Paresthesia? 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 # Normal Needle/EMG exam Nerve Conduction Studies ?Stim Site NR Peak (ms) P-T Amp (?V) Site1 Site2 Delta-P (ms) Dist (cm) Issac (m/s) Left Sup Fibular Anti Sensory (Ant Lat Mall) 14 cm ? 3.2 5.9 14 cm Ant Lat Mall 3.2 16.0 50 Right Sup Fibular Anti Sensory (Ant Lat Mall) 14 cm ? 3.4 12.5 14 cm Ant Lat Mall 3.4 16.0 47 Left Sural Anti Sensory (Lat Mall) Calf ? 3.7 10.4 Calf Lat Mall 3.7 16.0 43 Right Sural Anti Sensory (Lat Mall) Calf ? 3.8 6.2 Calf Lat Mall 3.8 16.0 42 ?Stim Site NR Onset (ms) O-P Amp (mV) Site1 Site2 Delta-0 (ms) Dist (cm) Issac (m/s) Left Peroneal Motor (Vastus Med) Ankle ? 4.2 0.6 Popit Ankle 9.6 38.0 40 Popit ? 13.8 0.6 Right Peroneal Motor (Vastus Med) Ankle ? 3.4 0.5 Popit Ankle 8.2 38.0 46 Popit ? 11.6 0.4 Left Tibial Motor (Abd Mcqueen Brev) Ankle ? 5.0 0.1 Knee Ankle 11.5 38.0 33 Knee ? 16.5 0.3 Right Tibial Motor (Abd Mcqueen Brev) Ankle ? 4.1 2.8 Knee Ankle 8.9 41.0 46 Knee ? 13.0 1.1 Electromyography ?Side Muscle Nerve Root Ins Act Fibs Amp Dur Recrt Comment Right AntTibialis Dp Br Fibular L4-5 Nml Nml Nml Nml Nml Right Gastroc Tibial S1-2 Nml Nml Nml Nml Nml Right Fibularis Long Sup Br Fibular L5-S1 Nml Nml Nml Nml Nml Right Flex Dig Long Tibial L5-S2 Nml Nml Nml Nml Nml Right Ext Dig Brev Dp Br Fibular L5, S1 Nml Nml Nml Nml Nml Right QuadratusFem QuadFemoris L4-5, S1 Nml Nml Nml Nml Nml Left AntTibialis Dp Br Fibular L4-5 Nml Nml Nml Nml Nml Left Gastroc Tibial S1-2 Nml Nml Nml Nml Nml Left Fibularis Long Sup Br Fibular L5-S1 Nml Nml Nml Nml Nml Left Flex Dig Long Tibial L5-S2 Nml Nml Nml Nml Nml Left Ext Dig Brev Dp Br Fibular L5, S1 Nml Nml Nml Nml Nml Left QuadratusFem QuadFemoris L4-5, S1 Nml Nml Nml Nml Nml
== END 2025-01-09 08:38 | disposition home or self-care (01) ==
PROVIDERS: PCP Family Medicine; Visit Provider Podiatrist Foot & Ankle Surgery
DX: G57.82 Other specified mononeuropathies of left lower limb (principal)
CPT/HCPCS: 95886; 95910

== ENCOUNTER 2025-04-25 08:37 | Outpatient (CLI) | payer BC, SELFPAY ==
[2025-04-25 08:47] LABS: Hematocrit 40.5 % (35.0-49.0); Hemoglobin 12.8 g/dL (12.0-15.0); Mean Corpuscular HGB Conc 31.6 g/dL (32-36); Mean Corpuscular Hemoglobin 24.9 pg (27.0-31.0); Mean Corpuscular Volume 78.8 fL (78.0-102.0); Platelet Count Result 243 K/mm3 (150-420); Red Blood Count 5.14 M/mm3 (4.20-5.40); White Blood Count 5.0 K/mm3 (4.8-10.8)
--- OUTSIDE RECORDS SUMMARY | 2025-04-25 09:02 | XMS_ITS | Clinical Summary ---
Author Organization [place] [id number] [facility] Address [address] [place] [address] Care Team Providers Care Slag Worker Name Role Phone Tarik Paredes MD Primary [...] recur Assessment & Plan (07/17/2022 9:42 AM LIFEGUARD): No clear s/s of hyperthyridism Will recheck TFTs Recommendations to follow. F/u in 6 months. Assessment & Plan (07/18/2021 9:14 AM LIFEGUARD): Chronic problem, stable off medication. Will update [...] Medical History Date Comments Hyperthyroidism Hypertension Dxd ~2014 HL (hearing loss) 08/2005 Sleep apnea No [...] Father Santi Maternal Grandfather Maternal Grandmother Mother Marge Sister Social History Tobacco Use Types Packs/Day [...] on file Legal Sex Female 8:18 AM LIFEGUARD Gender Identity Female 11/12/2021 12:12 PM CDT [...] Comments Blood Pressure 141/79 06/27/2024 9:10 AM LIFEGUARD Pulse 71 06/27/2024 9:10 AM LIFEGUARD Temperature 36.4 C (97.5 F) 06/27/2024 8:35 AM LIFEGUARD Respiratory Rate 19 06/27/2024 9:10 AM LIFEGUARD Oxygen Saturation 96% 06/27/2024 9:10 AM LIFEGUARD Inhaled Oxygen Concentration - - Weight 98.7 kg (217 lb 8 oz) 06/27/2024 6:00 AM LIFEGUARD Height 170.2 cm (5' 7) 06/27/2024 6:00 AM LIFEGUARD Body Mass Index 34.07 06/27/2024 6:00 AM LIFEGUARD Plan of Treatment Health Maintenance Due Date Last Done Comments Colon Cancer Screening-Colonoscopy 1972 Hepatitis C Screening 1972 Hepatitis B Screening 01/06/1990 Regular Well Visit/Exam 18-64 01/06/1990 Zoster Vaccine (1 of 2) 01/06/2022 Depression Screening 07/17/2023 07/17/2022 Covid-19 Vaccine (3 - season) 2025 11/06/2020, 10/15/2020 Influenza Vaccine (#1) 2025 05/08/2020 Breast Cancer Screening-Mammogram 06/23/2025 06/23/2024, 06/01/2023, 06/13/2022, Additional history exists DTaP/Tdap/Td Vaccine (2 - Td or Tdap) 09/21/2027 09/20/2017 Pneumococcal vaccine <65 Aged Out No longer eligible based on patient's age to complete this topic Medical Devices Implanted Type Area Sports Information Director Device Identifier Shelf Expiration Date Model / Serial / Lot Antonia Harper Otology 5mm .5mm Eclipse 360d Incus Wide Flat Ribbon [id number] - [id number] Implanted:Qty: 1 on 06/27/2024 by Julius Harris MD at [facility] [place] Left: Ear Antonia Salinas 01/11/2028 [id number] / / [id number] Procedures Procedure Name Priority Date/Time Associated Diagnosis Comments SCREENING MAMMOGRAM BILATERAL W SADIQ Schedule Routine, Read Routine (OP Routine) 06/23/2024 11:18 AM LIFEGUARD Screening mammogram, encounter for from Last 3 Months or Most Recently Relevant to Health Maintenance Results * Screening Mammogram Bilateral W Sadiq (06/23/2024 11:18 AM LIFEGUARD) Anatomical Region Laterality Modality Breast Bilateral Mammography 06/23/2024 12:2 9 PM LIFEGUARD Impressions 06/23/2024 12:29 PM LIFEGUARD No evidence of malignancy in either breast. FINAL ASSESSMENT: BI-RADS Category 2: Benign. RECOMMENDATION: Recommend return for annual screening mammogram in 12 months. Electronically signed by: BIENVENIDO HOFFMAN MD Narrative 06/23/2024 12:29 PM LIFEGUARD EXAMINATION: BILATERAL SCREENING MAMMOGRAM COMPARISON: All prior [...] Most Recently Relevant to Health Maintenance Insurance BLUE ACC CHOICE OOS BLUE ACC CHOICE OOS BLUE ACC CHOICE OOS Care Teams Slag Worker Relationship Specialty Start Date End Date Tarik Paredes MD [address] [facility] [address] [facility] [address] [place] [address] PCP - General Family Medicine 10/18/24
--- OUTSIDE RECORDS SUMMARY | 2025-04-25 09:02 | XMS_ITS | Data Portability ---
Author Organization [place] - [place] [employer] [facility], Main Office Address [address] [place] [address] Care Team Providers Care Photo Mask Processor Name Role Phone MARION STACK Primary Care Provider CECYMARION BATEMAN Referring Provider Assessment Encounter Date Assessment Date Assessment LastModified by Organization Details LastModified Time 10/13/2022 10/13/2022 This note is dictated and transcribed by [employer]. Wheel Buffer variances may occur. Despite proofreading, typographical errors may occur. Not available 10/13/2022 11:02:12 10/31/2024 10/31/2024 This note is dictated and transcribed by [employer]. Wheel Buffer variances may occur. Despite proofreading, typographical errors may occur. Occasional wrong-word or 'tvrkb-l-fmfm' substitutions may have occurred due to the inherent limitations of voice recording. Read the chart carefully and recognize, using context, where substitutions have occurred. Not available 10/31/2024 12:42:30 01/30/2025 01/30/2025 This note is dictated and transcribed by [employer]. Wheel Buffer variances may occur. Despite proofreading, typographical errors may occur. Occasional wrong-word or 'homfd-j-ybsa' substitutions may have occurred due to the inherent limitations of voice recording. Read the chart carefully and recognize, using context, where substitutions have occurred. Not available 01/30/2025 12:30:55 Plan of Treatment Reminders Order Date Submit Date Provider Last Modified By Organization Details Last Modified Time Details Appointments None recorded. Lab None recorded. Referral neurologist referral - PLEASE CALL PT TO SCHEDULE AN APPT...THAN K YOU! 2024 025 [email or web address] [facility] - Neurology, [address], [address], [place], [address], 08:32:05 Procedures None recorded. Surgeries None recorded. Imaging XR, lumbar spine - r/o referred pain left leg 2024 025 [email or web address] Not available 10:44:41 electromyog john + nerve conduction study - PLEASE CALL PT TO SCHEDULE AN APPT.....TH ANK YOU! 2024 025 [facility] (Cardiology & Emg), [address], [place], [address], 13:46:02 Medication Orders diclofenac sodium 75 mg tablet,kristina yed release 2024 025 [facility] [facility] [address] [place], [address], 5 13:37:29 diclofenac sodium 75 mg tablet,kristina yed release 2022 023 [facility] [facility] [address] [place], [address], 3 14:50:57 Patient TargetsNo targets recorded. Patient Instructions Encounter Date Encounter Id Patient Instructions Last Modified By Organization Details Last Modified Time 09/22/2022 [id number] posterior tibial tendinitis: exercises Not available 09/22/2022 09:45:33 plantar fasciitis: exercises Not available 09/22/2022 09:45:33 plantar fasciiti s education Not available 09/22/2022 09:45:33 x-rays left foot [...] joint space within normal limits, no dislocations Not available 09/22/2022 14:57:42 10/31/2024 [id number] learning about rice (rest, ice, compression, and elevation) [email or web address] Not available 10/31/2024 13:37:29 Reason for Referral Neurologist Referral for Par esthesia of lower extremity PLEASE CALL PT TO SCHEDULE AN APPT...THANK YOU! Referring Physician: Brad Escalante, Podiatric Surgery, Encounter Date: 01/30/2025 Results Created Date Observation Date Name Description Value Unit Range Abnormal Flag Note LastModifiedBy Organization Detail LastModifiedTime 01/18/2001/09/2025 elect romyo gram + nerve condu ction study No observ ation record ed. [address], [place], [address], 01/18/2025 10:12:30 Result Notes None recorded. Problems Name Problem SNOMED Code Status Onset Date Resolution Date Notes Provider Name and Address Organization Details Recorded Time Current tear of medial cartilage AND/OR meniscus of knee Active Not Available [facility] 3 16:57:02 Knee pain Active Not Available [facility] 3 16:57:03 Chondromal acia of patella 38193038 Active Not Available [facility] 3 16:57:03 Derangemen t of knee 54029157 Active Not Available [facility] 3 16:57:03 Sprain of lateral ligament of ankle joint 475401006 Active 2021 Not Available [facility] 3 16:57:02 Pain of left ankle joint 1390706410554 9103 Active 2022 BLAS Ortega, [facility] [employer] [facility] 3 09:01:22 Pain in left foot 6865896509041 07 Active 2022 BLAS Ortega, [facility] [employer] [facility] 3 09:03:17 Tendonitis of left ankle 1255595084175 9106 Active 2022 Brad Escalante DPM [address], [address], [place], [address] , [employer] 3 09:44:39 Plantar fasciitis of left foot 5055022461995 9101 Active 2022 Brad Escalante DPM [address], [address], [place], [address] , [employer] 3 09:45:08 Congenital pes planus 57422538 Active 2022 Brad Escalante DPM [address], [address], [place], [address] , [employer] 3 09:46:24 Pain in left lower limb 065924959 Active 2024 Brad Escalante DPM [address], [address], [place], [address] , [employer] 5 12:42:17 Paresthesi a of lower extremity 280078371 Active 2024 Brad Escalante DPM [address], [address], [place], [address] , [employer] 5 12:42:23 Lumbar radiculopa thy 628872227 Active 2024 Brad Escalante DPM [address], [address], [place], [address] , [employer] 5 12:43:17 Problem Notes None recorded. Medical [...] 75 mg tablet,kristina yed release TAKE 1 TAB PO Q 12HRS NEEDED active Not Available Not Available No t [...] No t Available Vitals Date Recorded Body height Heart rate Systolic And Diastolic Provider Name and Address Organization Details Last Updated DateTime 09/22/2022 167.64 cm 93 /min 195/116 mm[Hg] Johnna Sullivan MA [facility] [employer] [facility] 09/22/2022 09:00:23 Date Recorded Body mass index (BMI) Body height Body weight Provider Name and Address Organization Details Last Updated DateTime 10/03/2021 33.9 kg/m2 167.64 cm 38186.4 g Not Available [employer] 09/10/2022 16:56:10 Date Recorded Body height Heart rate Respiratory rate Oxygen saturation Oxygen saturation in Arterial blood by Pulse oximetry Systolic And Diastolic Provider Name and Address Organization Details Last Updated DateTime 3 167.64 cm 78 /min 14 /min 99 % 99 % 136/74 mm[Hg] Ghada Brown [facility] [employer] [facility] 3 10:31:57 Date Recorded Body height Heart rate Respiratory rate Oxygen saturation Oxygen saturation in Arterial blood by Pulse oximetry Systolic And Diastolic Provider Name and Address Organization Details Last Updated DateTime 5 167.64 cm 78 /min 14 /min 98 % 98 % 140/83 mm[Hg] Ghada Brown [facility] [employer] [facility] 5 12:30:53 Date Recorded Body height Heart rate Respiratory rate Oxygen saturation Oxygen saturation in Arterial blood by Pulse oximetry Systolic And Diastolic Provider Name and Address Organization Details Last Updated DateTime 5 167.64 cm 85 /min 14 /min 98 % 98 % 158/89 mm[Hg] Ghada Brown [facility] [employer] [facility] 12:19:01 Social History None recorded. Functional Status None recorded. Mental Status None recorded. Family History Nothing Reported. Medical History No medical history recorded. Gynecological HistoryNo gynecological history recorded. Obstetrics History GPAL:G 0 P 0 0 0 0 Past Encounters Encounter ID Performer Location Encounter Start Date Encounter Closed Date Diagnosis/Indication Diagnosis SNOMED-CT Code Diagnosis ICD10 Code Diagnosis IMO Codes Diagnosis Note [id number] [facility] [place] [address] [place] [address] 09/05/2021 00:00:00 09/06/2021 17:20:41 [id number] [facility] [place] [address] [place] [address] 10/03/2021 00:00:00 10/03/2021 14:01:16 [id number] Brad Escalante DPM [facility] [place] [address] [place] [address] 09/22/2022 08:52:59 09/22/2022 16:18:21 Pain of left ankle joint 8846024077 9906469 M25.572 xrays of foot and ankle- neg , flat foot Tendonitis of left ankle 9398478073 8506632 M67.874 stretching and icing instructio ns reviewedFo llow-up in 3 weeks possible physical therapy and ultrasound at that time Plantar fa sciitis of left foot 6964660316 0646790 M72.2 stretching and icing instructio ns reviewedre commend supportive shoe gearFollow -up in 3 weeks possible physical therapy at that time Congenital pes planus 23 262670 Q66.52 ankle and foot x-rays reviewed with the patientcon kelsey [facility] ecommend also stepping up to [facility] [id number] Brad Escalante DPM [facility] Pod[facility] [place] [address] [place] [address] 10/13/2022 10:23:20 10/14/2022 13:12:32 Pain of left ankle joint 9399046064 9924018 M25.572 xrays of foot and ankle- neg , flat footRx physical therapy Tendonitis of left ankle 4529808972 9091395 M67.874 Resolved Plantar fa sciitis of left foot 1123053618 1759909 M72.2 resolvedco ntinue stretching and icinngcont inue orthoticsC ontinue supportive shoe gear [id number] Brad Escalante DPM [facility] Pod[facility] [place] [address] [place] [address] 10/31/2024 12:22:58 11/02/2024 08:33:21 Pain in left lower limb 949550840 M79.605 Paresthesi a of lower extremity 287545563 R20.2 nerve testing ordered Lumbar radiculopathy 128 177663 M54.16 obtain xrays r/o arthritis [id number] Brad Escalante DPM [facility] Pod[facility] [place] [address] [place] [address] 01/30/2025 12:14:19 02/03/2025 16:17:51 Pain in left lower limb 345383378 M79.605 Secondary to below Paresthesi a of lower extremity 218331094 R20.2 left axonal neuropathy - referral neurologyn ormal EMG Lumbar radiculopathy 128 426343 M54.16 obtain xrays r/o arthritis Health Concerns Section Related Observation LastModified by Organization Detai ls LastModified Time None Recorded Concern Status LastModified by Organization Details LastModified Time None Recorded Advance Directives Directive None Recorded Payers Insurance Date Sequence Insurance Name Policy Number Policy Floyd Covered Member ID Floyd Member ID Guarantor Name 02/03/2025 1 [employer] [id number] Armando Hammer [id number] Bhakti Hammer Notes Date Note Type Note [...] ankle. Patient states that she had some tkla-dn-vfamovvw swelling without bruising of the ankle and [...] complaints. Brad Escalante DPM [address], [employer], [place], [address], [facility] 09/22/2022 16:10:57 10/13/2022 text/html . Patient is [...] Escalante DPM [address], [address], [place], [address], [facility] 10/13/2022 11:03:11 10/31/2024 text/html . Patient is [...] for this condition. Brad Escalante DPM [address], [address], [place], [address], [facility] [employer] [facility] 10/31/2024 13:44:51 01/30/2025 text/html Patient is a 55-year-old female she returns the office for follow-up on nerve conduction study and EMG. 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 Patient continues have complaints of paresthesias of the left lower leg. We will send her to Neurology for continued evaluation And treatment. Brad Escalante DPM [address] [facility] [address], [place], [address], [facility] [employer] [facility] 02/02/2025 09:15:47 OBGyn Episode No OBEpisode recorded.
[2025-04-25 09:16] LABS: Alanine Aminotransferase 26 U/L (6-35); Albumin Level 4.4 g/dL (3.5-5.1); Alkaline Phosphatase 54 U/L (38-126); Anion Gap 7 mmol/L (4-12); Aspartate Amino Transferase 29 U/L (14-36); Bilirubin,Total 0.6 mg/dL (0.2-1.3); Blood Urea Nitrogen 20 mg/dL (7-17); Calcium 10.3 mg/dL (8.4-10.2); Carbon Dioxide 30 mmol/L (22-30); Chloride 104 mmol/L (98-107); Estimated Glomerular Filt Rate 50; Glucose 102 mg/dL (65-110); Osmolality Calculated 294 mOsm/kg (285-295); Potassium 5.1 mmol/L (3.4-5.0); Sodium 141 mmol/L (137-145); Total Protein 7.5 g/dL (6.3-8.2)
[2025-04-25 09:21] LABS: Hemoglobin A1C 5.8 % (<5.7)
== END 2025-04-25 08:38 | disposition home or self-care (01) ==
LOC: CHSLAB 08:38
PROVIDERS: PCP Family Medicine; Visit Provider Physician Assistant Medical
DX: I10 Essential (primary) hypertension (principal); E78.2 Mixed hyperlipidemia; R73.01 Impaired fasting glucose
CPT/HCPCS: 36415; 80053; 83036; 85027